=== PATIENT | female | born 1930 | race Asian ===

== ENCOUNTER 2016-04-06 16:18 | Emergency (ER) | payer MEDICAID ==
[~2016-04-06] VITALS: Ht 144.8 cm; Wt 49.9 kg
[2016-04-06] MEDS ORDERED: METOPROLOL TART25 MG ORAL (16:50)
[2016-04-06] MEDS ORDERED: GLIPIZIDE5 MG ORAL (16:50)
[2016-04-06] MEDS ORDERED: SIMVASTATIN20 MG ORAL (16:50)
[2016-04-06] MEDS ORDERED: LOSARTAN POTAS100 MG ORAL (16:50)
--- NOTE | 2016-04-06 17:03 | Emergency Room Report ---
History of Present Illness General Chief Complaint: Edema Source: Patient, Family Member Present Illness HPI Patient presents with bilateral leg edema. They really noticed it today but has had pedal edema for several weeks. She was recently started on metformin for the first time a couple weeks ago. The daughter was considering going back to this once daily and felt that this medication may be associated with the problem. The patient denies any pain. She states that her legs feel heavy to move about and she's having difficulty ambulating but is able to do so. She denies any shortness of breath or chest pain. She denies any cough or orthopnea. No dysuria, NVD, change bowels, other joint pain, rashes. No CUEVA, dizziness. No depression. Allergies: Coded Allergies: No Known Allergies (Unverified , 04/06/16) Patient History Past Medical History: see triage record Social History: Denies: smoking Social History Narrative with daughter Reviewed Nursing Documentation: PMH: Agreed, PSxH: Agreed Nursing Documentation-PMH Hx Hypertension: Yes Hx Diabetes: Yes Review of Systems All Other Systems: negative except mentioned in HPI Physical Exam Vital Signs Date Time Temp Pulse Resp B/P Pulse Ox O2 Delivery O2 Flow Rate FiO2 04/06/16 16:41 97.3 60 16 200/70 94 Room Air Sp02 EP Interpretation: reviewed, normal General Appearance: well appearing, no apparent distress, GCS 15 Head: normocephalic, atraumatic Eyes: bilateral eye PERRL, bilateral eye normal inspection ENT: moist mucus membranes Neck: supple Respiratory: lungs clear, normal breath sounds Cardiovascular #1: regular rate, rhythm, edema - bilateral legs 2-3+ pitting Cardiovascular #2: 2+ radial (R) Gastrointestinal: normal inspection, normal bowel sounds, non tender, no mass, non-distended Musculoskeletal: back normal, gait/station normal, normal range of motion Neurologic: alert, oriented x3, motor strength/tone normal, sensory intact, normal gait, speech normal Psychiatric: mood/affect normal Skin: normal inspection, warm/dry Medical Decision Making Diagnostic Impression: Primary Impression: Edema Qualified Codes: R60.9 - Edema, unspecified Additional Impressions: Polycythemia Thrombocytosis Renal insufficiency CHF (congestive heart failure) Qualified Codes: 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 Differential includes acute renal failure, electrolyte imbalance, pulmonary hypertension, congestive heart failure amongst others. Emergent evaluation excluding acute myocardial infarction and other cardiac emergencies is undertaken. Labs, EKG and chest x-ray are needed. Labs are significant for renal insufficiency thrombocytosis and polycythemia. In addition to that she the renal insufficiency has normal electrolytes. Her glucose is 120. X-ray shows cardiomegaly and some pulmonary hypertension. Her O2 sat is slightly low but she is stable and not dyspneic. Blood pressure still high. The patient is treated with nitro paste, Lasix and hydralazine. Presented to RN at [facility]. Presented to Dr. Eli. Patient transferred to [facility]. Laboratory Tests Test 04/06/16 17:32 04/06/16 19:00 White Blood Count 12.6 K/UL (4.8-10.8) H Red Blood Count 6.75 M/UL (4.20-5.40) H Hemoglobin 18.9 G/DL (12.0-16.0) *H Hematocrit 60.3 % (37.0-47.0) H Mean Corpuscular Volume 89 FL (80-99) Mean Corpuscular Hemoglobin 28.0 PG (27.0-31.0) Mean Corpuscular Hemoglobin Concent 31.4 G/DL (32.0-36.0) L Red Cell Distribution Width 17.1 % (11.6-14.8) H Platelet Count 549 K/UL (150-450) H Mean Platelet Volume 8.2 FL (6.5-10.1) Neutrophils (%) (Auto) 77.8 % (45.0-75.0) H Lymphocytes (%) (Auto) 12.6 % (20.0-45.0) L Monocytes (%) (Auto) 5.2 % (1.0-10.0) Eosinophils (%) (Auto) 3.3 % (0.0-3.0) H Basophils (%) (Auto) 1.1 % (0.0-2.0) Prothrombin Time 12.3 SEC (9.30-11.50) H Prothrombin Time INR 1.2 (0.9-1.1) H PTT 33 SEC (23-33) Sodium Level 138 mEQ/L (135-145) Potassium Level 4.3 mEQ/L (3.4-4.9) Chloride Level 100 mEQ/L (98-107) Carbon Dioxide Level 22 mEQ/L (20-30) Anion Gap 16 (5-15) H Blood Urea Nitrogen 26 mg/dL (7-23) H Creatinine 1.8 mg/dL (0.5-0.9) H Estimate Glomerular Filtration Rate mL/min (>60) Glucose Level 120 mg/dL (74-106) H Calcium Level 9.6 mg/dL (8.6-10.2) Total Bilirubin 1.8 mg/dL (0.0-1.2) H Direct Bilirubin 0.5 mg/dL (0.1-0.3) H Aspartate Amino Transferase (AST) 29 U/L (5-40) Alanine Aminotransferase (ALT) 16 U/L (3-33) Alkaline Phosphatase 114 U/L (35-104) H Total Creatine Kinase 50 U/L (26-140) Troponin I < 0.30 ng/mL (<=0.30) Pro-B-Type Natriuretic Peptide 1800 pg/mL (0-450) H Total Protein 7.8 g/dL (6.6-8.7) Albumin 3.4 g/dL (3.5-5.2) L Globulin 4.4 g/dL Albumin/Globulin Ratio 0.7 (1.0-2.7) L Urine Color Pale yellow Urine Appearance Clear Urine pH 6 (4.5-8.0) Urine Specific [place] 1.005 (1.005-1.035) Urine Protein 1+ (NEGATIVE) H Urine Glucose (UA) Negative (NEGATIVE) Urine Ketones Negative (NEGATIVE) Urine Occult Blood Negative (NEGATIVE) Urine Nitrite Negative (NEGATIVE) Urine Bilirubin Negative (NEGATIVE) Urine Urobilinogen Normal MG/DL (0.0-1.0) Urine Leukocyte Esterase Negative (NEGATIVE) Urine RBC 0-2 /HPF (0 - 2) Urine WBC 0-2 /HPF (0 - 2) Urine Squamous Epithelial Cells Occasional /LPF Urine Bacteria None /HPF (NONE) EKG Diagnostic Results Rate: bradycardiac ST Segments: no acute changes Rhythm Strip Diag. Results EP Interpretation: yes Rhythm: no PVC's, no ectopy, other - suzanna, NSSTTW changes Chest X-Ray Diagnostic Results EP Interpretation: Yes Findings: no effusion, no pneumothorax, other - pulm htn and inc cor Number of Views: 1 Last Vital Signs Date Time Temp Pulse Resp B/P Pulse Ox O2 Delivery O2 Flow Rate FiO2 04/06/16 22:00 97.9 74 20 147/52 98 Room Air Status: improved Disposition: ER [facility] Condition: Serious - Stable for transfer Corey Hardy M.D. Apr 06, 2016 17:03
[2016-04-06 17:30] VITALS: BP 173/70
[2016-04-06 17:46] LABS: BASOPHILS % (AUTO) 1.1 % (0.0-2.0); EOSINOPHILS % (AUTO) 3.3 % (0.0-3.0); LYMPHOCYTES % (AUTO) 12.6 % (20.0-45.0); MEAN CORPUSCULAR HGB CONC 31.4 G/DL (32.0-36.0); MEAN CORPUSCULAR VOLUME 89 FL (80-99); MEAN PLATELET VOLUME 8.2 FL (6.5-10.1); MONOCYTES % (AUTO) 5.2 % (1.0-10.0); NEUTROPHILS % (AUTO) 77.8 % (45.0-75.0); PLATELET COUNT 549 K/UL (150-450); RED BLOOD COUNT 6.75 M/UL (4.20-5.40); RED CELL DISTRIBUTION WIDTH 17.1 % (11.6-14.8); WHITE BLOOD COUNT 12.6 K/UL (4.8-10.8)
[2016-04-06 17:57] LABS: INR 1.2 (0.9-1.1); PROTHROMBIN TIME 12.3 SEC (9.30-11.50)
[2016-04-06 18:01] LABS: TROPONIN I < 0.30 ng/mL (<=0.30)
[2016-04-06 18:02] LABS: ALANINE AMINOTRANSFERASE 16 U/L (3-33); ALBUMIN/GLOBULIN RATIO 0.7 (1.0-2.7); ANION GAP 16 (5-15); ASPARTATE AMINO TRANSFERASE 29 U/L (5-40); CALCIUM 9.6 mg/dL (8.6-10.2); CARBON DIOXIDE 22 mEQ/L (20-30); CHLORIDE 100 mEQ/L (98-107); CREATININE 1.8 mg/dL (0.5-0.9); HEMOLYSIS 33; POTASSIUM 4.3 mEQ/L (3.4-4.9); SODIUM 138 mEQ/L (135-145); TOTAL PROTEIN 7.8 g/dL (6.6-8.7)
[2016-04-06 18:23] LABS: BILIRUBIN,DIRECT 0.5 mg/dL (0.1-0.3)
[2016-04-06] MEDS ORDERED: Nitroglycerin 2% oint pkt TOPIC ONE (19:00)
[2016-04-06 19:42] LABS: APPEARANCE,URINE CLEAR; KETONES,URINE NEGATIVE (NEGATIVE); LEUKOCYTE ESTERASE ,URINE NEGATIVE (NEGATIVE); NITRITE,URINE NEGATIVE (NEGATIVE); PH,URINE 6 (4.5-8.0); PROTEIN,URINE 1+ (NEGATIVE); UROBILINOGEN,URINE NORMAL MG/DL (0.0-1.0)
[2016-04-06 19:57] LABS: RBC,URINE 0-2 /HPF (0 - 2); WBC,URINE 0-2 /HPF (0 - 2)
[2016-04-06 19:59] LABS: SQUAMOUS EPITHELIAL CELL,UR OCCASIONAL /LPF (NONE/OCC)
[2016-04-06 20:16] VITALS: BP 147/52
[2016-04-06 22:00] VITALS: BP 147/52
--- NOTE | 2016-04-07 09:00 | Diagnostic Imaging Report ---
Clinical history: Acute chest pain. Technique: Portable AP chest radiograph was obtained. Comparison: None Findings: Lung volumes are low. There is mild cardiomegaly with scattered interstitial and perihilar densities suspicious for mild interstitial edema. Trace effusions may be present. Ill-defined opacity in the right infrahilar region may represent atelectasis or pneumonia. PA and lateral chest radiographs in full inspiration after therapy should be considered to exclude an underlying mass. Atherosclerotic calcification of the aortic arch is noted. The bony thorax is unremarkable. Impression: 1. Borderline cardiomegaly with mild interstitial edema and trace effusions. 2. Low lung volumes. Ill-defined right basilar opacity may represent atelectasis or focal pneumonia. PA and lateral chest radiographs in full inspiration after therapy should be considered to exclude an underlying mass. 3. Atherosclerotic vascular disease.
--- NOTE | 2016-04-07 21:12 | Cardiology Report ---
APPROVED REPORT EKG Measurement Heart [id number] VT 150P55 [id number] Sinus bradycardia Left posterior fascicular block T wave abnormality, consider inferior ischemia Abnormal ECG
== END 2016-04-06 22:00 | disposition short-term general hospital (02) ==
LOC: EMR 17:00
DX: R60.0 Localized edema (principal); D75.1 Secondary polycythemia; I50.9 Heart failure, unspecified; D47.3 Essential (hemorrhagic) thrombocythemia; E11.9 Type 2 diabetes mellitus without complications; I10 Essential (primary) hypertension; Z79.84 Long term (current) use of oral hypoglycemic drugs
CPT/HCPCS: 36415; 71010; 80053; 81003; 82248; 82550; 82962; 83880; 84484; 85025; 85610; 85730; 93005; 96374; 96375; 99285; J0360; J1940